=== PATIENT | female | born 1960 | race Caucasian/White ===

== ENCOUNTER 2021-06-28 10:30 | Day surgery (SDC) | payer OTHER ==
--- NOTE | 2021-06-27 12:35 | RAD REPORT ---
EXAM DESCRIPTION: RAD - Chest Pa And Lat (2 Views) - 06/27/2021 12:21 pm CLINICAL HISTORY: PRE-OP COMPARISON: Chest Pa And Lat (2 Views) dated 09/24/2017; CHEST PA AND LAT 2 VIEW dated 12/31/2009 FINDINGS: Lines: None. Lungs: No evidence of edema or pneumonia. Pleural: No significant pleural effusions or pneumothorax. Cardiac: The heart size is within normal limits. Bones: No acute fractures. Sternotomy. Other: IMPRESSION: No acute cardiopulmonary disease.
[2021-06-27 12:59] LABS: Absolute Lymphocytes (CBC) 1.9 K/uL (0.7-4.9); Basophils % 0.6 % (0-1.3); Hematocrit 37.2 % (36.0-45.0); Lymphocytes % 33.4 % (15.3-44.8); MPV 7.9 fL (7.6-11.3); RBC Red Blood Cell Count 4.33 M/uL (3.86-4.86)
[2021-06-27 13:03] LABS: Protime INR 1.02
[2021-06-27 13:04] LABS: Potassium 4.5 mmol/L (3.5-5.1)
[2021-06-28] MEDS ORDERED: NA CHLORIDE 0.9% 500 ML ONE (10:51)
[2021-06-28] MEDS ORDERED: HEPA 1000U/500MLS 1,000 UNIT/500 ML BAG IV ONE (11:02)
[2021-06-28] MEDS ORDERED: LIDOCAINE 1% 20 ML MDV ONE (11:02)
[2021-06-28] MEDS ORDERED: MIDAZOLAM HCL 2 MG/2 ML INJ ONE (11:09)
[2021-06-28] MEDS ORDERED: FENTANYL CITR 100 MCG/2 ML ONE (11:09)
[2021-06-28] MEDS ORDERED: ATROPINE SULF 1 MG/10 ML SYR IV ONE (11:10)
[2021-06-28] MEDS ORDERED: NA CHLORIDE 0.9% 0 ML ONE (11:10)
[2021-06-28] MEDS ORDERED: FLUMAZENIL 0.1 MG/ML (5 mL VIAL) IV ONE (11:28)
[2021-06-28 11:56] VITALS: TEMP 97
[2021-06-28 12:35] VITALS: O2SAT 97
--- NOTE | 2021-06-28 12:54 | OP ---
Date of Procedure: 06/28/2021 Surgeon: Roni De Jesus MD Leather Cartridge Belt Maker: Vern Oskar. The patient will remain at 2 hours of bedrest after the [employer] and she will go home later on today and I will see her in the office in 2 weeks. Continue the same medication for now. She will resume her Eliquis tomorrow. Procedures: Left heart catheterization, selective coronary arteriogram. Indication: CAD and unstable angina. Procedure In Detail: The patient was brought to the cath laboratory technician today, 06/28/2021, and prepped and drap ed in the routine sterile fashion. Given Versed and fentanyl for sedation. A 6-Ivorian sheath introd uced in the right common femoral artery successfully using Seldinger technique and 10 mL of Xylocaine . Jose catheters were used to do the heart catheterization, selective coronary arteriogram, and L V-gram. She was found to have an ejection fraction of 45% to 50% by JR4, angio. Her left main and L AD had diffuse plaquing, but no focal stenosis. She had 100% occlusion of the circumflex with SAKINA-1 flow. Her RCA had stents from the ostium all the way to the mid RCA. It was a dominant vessel. Al l stents were wide open. Her left ventricular end-diastolic pressure was normal at 7 mmHg. Anesthesia: Total conscious sedation 45 minutes. Complications: No complications. Blood Loss: 5 mL. Postoperative Diagnosis: Coronary artery disease, [id number]. Plan: To continue medical therapy. JAKUB/CHARLEE Voice ID: [id number] Report ID: [id number]
[2021-06-28 13:33] VITALS: BP 137/68
== END 2021-06-28 13:33 | disposition home or self-care (01) ==
LOC: CCL 10:30
DX: I25.110 Atherosclerotic heart disease of native coronary artery with unstable angina pectoris (principal); I25.82 Chronic total occlusion of coronary artery; I10 Essential (primary) hypertension; I47.1 Supraventricular tachycardia; I34.0 Nonrheumatic mitral (valve) insufficiency; I25.5 Ischemic cardiomyopathy; E78.2 Mixed hyperlipidemia; K21.9 Gastro-esophageal reflux disease without esophagitis; G62.9 Polyneuropathy, unspecified; Z95.1 Presence of aortocoronary bypass graft; Z95.5 Presence of coronary angioplasty implant and graft; Z87.891 Personal history of nicotine dependence; Z20.822 Contact with and (suspected) exposure to COVID-19; Z82.49 Family history of ischemic heart disease and other diseases of the circulatory system
CPT/HCPCS: 85025; 80048; 36415; 85610; 85730; 71046; 93458; U0003; C1893; C1760; J2250; J3010; J7040; J1644; J0583